=== PATIENT | male | born 1990 | race Caucasian/White ===

== ENCOUNTER 2023-04-21 11:26 | Emergency (ER) | payer BC ==
[~2023-04-21] VITALS: Ht 188 cm; Wt 81.6 kg
[2023-04-21 11:44] VITALS: O2SAT 100
[2023-04-21] MEDS ORDERED: PRED50TA PO (12:22)
== END 2023-04-21 12:30 | disposition home or self-care (01) ==
LOC: ER 11:26
DX: L42 Pityriasis rosea (principal); Z79.899 Other long term (current) drug therapy
CPT/HCPCS: A4606; A4663